=== PATIENT | female | born 1995 | race African-American/Black ===

== ENCOUNTER 2019-04-09 17:18 | Emergency (ER) | payer MEDICAID ==
[~2019-04-09] VITALS: Ht 167.6 cm; Wt 95.0 kg
[2019-04-09 21:19] LABS: CLARITY URINE CLEAR (CLEAR); COLOR URINE YELLOW (YELLOW); KETONES URINE NEGATIVE (NEGATIVE); LEUKOCYTE ESTERASE URINE 2+ (NEGATIVE); NITRITE URINE NEGATIVE (NEGATIVE); OCCULT BLOOD URINE NEGATIVE (NEGATIVE); PH URINE 6.5 (4.5-8.0); PROTEIN URINE NEGATIVE (NEGATIVE); SPECIFIC GRAVITY URINE 1.019 (1.005-1.030)
[2019-04-09] MEDS ORDERED: KETOROLAC 60MG/2ML VIAL IM STA (21:19)
[2019-04-09] MEDS ORDERED: METOCLOPRAMIDE HCL 10MG/2ML VIAL IM ONE (21:30)
[2019-04-09 22:39] VITALS: BP 127/84
== END 2019-04-09 22:40 | disposition home or self-care (01) ==
LOC: ER 17:18
DX: R51 Headache (principal); N39.0 Urinary tract infection, site not specified
CPT/HCPCS: 81003; 81025; 96372; 99283; J1885; J2765